=== PATIENT | male | born 1980 | race Caucasian/White ===

== ENCOUNTER 2020-12-02 08:58 | Emergency (ER) | payer SELFPAY ==
[2020-12-02 09:08] VITALS: BP 120/69; PULSE 125; RESP 20; TEMP 37.7; O2SAT 100
--- NOTE | 2020-12-02 09:21 | ED.URI ---
HPI - URI/Sore Throat General Chief Complaint: Upper Respiratory Infection Stated Complaint: sore throat ear pain and headache Time Seen by Provider: 12/02/20 09:15 Source: patient and RN notes reviewed History of Present Illness HPI Narrative: Patient is a 40-year-old male who presents the urgent care with complaints of sore throat, right earache and headache for the last 3 days. Patient states that he has been using Tylenol without much pain relief. States that he is unable to swallow due to the severe pain . Patient denies of any known exposure to strep, influenza or Covid. States that he has had a mild nonproductive cough. No other acute complaints. No acute distress noted. Patient aware of the plan of care. Some parts of this dictation were generated by voice recognition software and may contain typographical and/or grammatical inaccuracies. Related Data Allergies Allergy/AdvReac Type Severity Reaction Status Date / Time No Known Allergies Allergy Verified 12/02/20 09:13 Review of Systems Review of Systems: Narrative: CONSTITUTIONAL: Reports of chills and sweats EYES: Denies visual changes, redness, or discharge. ENT: Reports of severe sore throat and swelling , reports of right earache CARDIOVASCULAR: Denies chest pain, palpitations, or edema. RESPIRATORY: Reports a mild nonproductive cough without dyspnea GASTROINTESTINAL: Denies abdominal pain, nausea, vomiting, or diarrhea. GENITOURINARY: Denies dysuria or hematuria. SKIN: Denies rash or itching. MUSCULOSKELETAL: Denies back pain, joint pain, or myalgia. NEUROLOGIC: Denies headache, numbness, or weakness. All other systems reviewed are negative, except as documented in HPI. PMFSH Comments At the time of my signature, I reviewed and agree with the nursing past medical, surgical, social, and family history. There is no relevant family history pertinent to the patient complaint. Exam Narrative: Exam Narrative: GENERAL: This is a well-nourished, well-developed patient, in no apparent distress. HEAD: normocephalic, atraumatic. EYES: PERRL. Sclera clear/white. Vision is grossly intact. EARS: External ears normal, auditory canals clear and without drainage, TMs normal without perforation. Hearing grossly intact. NOSE: External nose normal with no obvious nasal discharge, nares without redness, no rhinorrhea. THROAT: Mucous membranes moist, moderate erythema noted to posterior oropharynx with bilateral tonsillar edema/erythema without exudate, moderate postnasal drainage NECK: Neck supple, mild to moderate tenderness to bilateral submandibular lymphadenopathy CARDIOVASCULAR: Regular rate and rhythm without murmurs, gallops, or rubs. RESPIRATORY: Clear to auscultation. Breath sounds equal bilaterally. No wheezes, rales, or rhonchi. SKIN: warm, intact with no suspicious lesions or rash, good texture and turgor. NEURO: awake, alert, and oriented to person, place and time. There were no obvious focal neurologic abnormalities. EXTREMITIES: No clubbing, cyanosis, or edema. Course Vital Signs Vital signs: Vital Signs Temperature 99.8 F H 12/02/20 09:08 Pulse Rate 125 H 12/02/20 09:08 Respiratory Rate 20 12/02/20 09:08 Blood Pressure 120/69 12/02/20 09:08 Pulse Oximetry 100 12/02/20 09:08 Temperature 99.8 F H 12/02/20 09:08 Pulse Rate 125 H 12/02/20 09:08 Respiratory Rate 20 12/02/20 09:08 Blood Pressure 120/69 12/02/20 09:08 Pulse Oximetry 100 12/02/20 09:08 Reviewed MDM - URI/Sore Throat MDM Narrative Medical decision making narrative: Reviewed lab results with the patient. He is aware that strep swab was negative. However, considering tonsillitis, you will be treated to cover for strep as well. We will culture the strep swab however you will not to get a phone call considering you have appropriate treatment. Therefore if you are wanting the results of your culture you will need to call the facility in 3 days. Complete the steroid reg
== END 2020-12-02 09:30 | disposition home or self-care (01) ==
PROVIDERS: Emergency Provider Nurse Practitioner Family
DX: J03.90 Acute tonsillitis, unspecified (principal); F17.200 Nicotine dependence, unspecified, uncomplicated
CPT/HCPCS: 87081; 87880; 99213; G0463